=== PATIENT | female | born 1980 | race Caucasian/White ===

== ENCOUNTER 2021-01-10 17:59 | Emergency (ER) | payer OTHER ==
[~2021-01-10] VITALS: Ht 154.9 cm; Wt 65.8 kg
[2021-01-10 18:00] VITALS: BP 115/65
[2021-01-10] MEDS ORDERED: BACTRIM DS TAB1 EAC1 PO (19:04)
== END 2021-01-10 19:11 | disposition home or self-care (01) ==
LOC: ER 17:59
DX: S70.362A Insect bite (nonvenomous), left thigh, initial encounter (principal); Z88.0 Allergy status to penicillin; W57.XXXA Bitten or stung by nonvenomous insect and other nonvenomous arthropods, initial encounter; Y93.89 Activity, other specified; Y92.89 Other specified places as the place of occurrence of the external cause; Y99.8 Other external cause status